=== PATIENT | male | born 1995 | race Caucasian/White ===

== ENCOUNTER 2021-09-11 08:58 | Emergency (ER) | payer OTHER, SELFPAY ==
--- NOTE | ~2021-09-11 | XR_ITS ---
EXAMINATION: XR FINGER, RIGHT CLINICAL INFORMATION: Laceration, trauma COMPARISON: None TECHNIQUE: AP view right hand and 2 views right index finger are obtained for 3 views. FINDINGS: There is comminuted fracture distal phalangeal tuft index finger distal phalanx. No significant angulation or displacement. No dislocation or destructive process. There is known soft tissue laceration in this area. No visible radiopaque soft tissue foreign body. XR/XR finger RT min 2V IMPRESSION: Comminuted fracture index finger distal phalangeal tuft.
[2021-09-11 09:10] VITALS: BP 127/67; PULSE 70; RESP 18; TEMP 36.2; O2SAT 96; BMI 28.5
--- NOTE | 2021-09-11 10:04 | ED_ITS ---
HPI - Wound/Laceration General Chief Complaint: Wound/Laceration <CODEY Garcia - Last Filed: 09/11/21 11:52> Stated Complaint: rt pointer finger lac <CODEY Garcia - Last Filed: 09/11/21 11:52> Time Seen by Provider: 09/11/21 10:03 <CODEY Garcia - Last Filed: 09/11/21 11:52> Source: patient <CODEY Garcia Last Filed: 09/11/21 11:52> Mode of arrival: ambulatory <CODEY Garcia - Last Filed: 09/11/21 11:52> History of Present Illness HPI narrative: 25-year-old male presenting to the ED complaining of crush wound to right index finger s/p spring from garage door letting go and catching finger [employer]. Reports also caught middle finger. Denies injury to other location. Admits to associated numbness. Tetanus unknown. Denies taking anticoagulation, fever, chills <CODEY Garcia Last Filed: 09/11/21 11:52> Onset (ago): hour(s) <CODEY Garcia - Last Filed: 09/11/21 11:52> Related Data Home Medications: Previous Rx's Medication Instructions Recorded acetaminophen 325 mg tablet 325 mg PO Q4-6H PRN #20 tab 09/11/21 (Tylenol) cephalexin 500 mg capsule 500 mg PO QID 7 Days #28 cap 09/11/21 hydrocodone 5 mg-acetaminophen 325 1 tab PO Q8H PRN 3 Days #9 tab 09/11/21 mg tablet ibuprofen 800 mg tablet 800 mg PO Q8H PRN #20 tab 09/11/21 <CODEY Garcia - Last Filed: 09/11/21 11:52> Allergies/Adverse Reactions: Allergies Allergy/AdvReac Type Severity Reaction Status Date / Time No Known Allergies Allergy Verified 09/11/21 09:08 [No Known Allergies*] <CODEY Garcia Last Filed: 09/11/21 11:52> Review of Systems Review of Systems: Constitutional: No Fever, No Chills ENT/Mouth: No Ear Pain, No Nasal Congestion, No sore throat Cardiovascular: No Chest Pain, No SOB Respiratory: No Cough, No Sputum, No Wheezing Gastrointestinal: No Nausea, No Vomiting, No Abdominal pain Genitourinary:, No Dysuria, No Urgency, No Flank Pain Musculoskeletal: + joint pain, No Myalgias, + Joint Swelling Skin: No Skin Lesions, No rash Neuro: No Weakness, N+ Numbness, + Paresthesias <CODEY Garcia - Last Filed: 09/11/21 11:52> Yes all other systems are reviewed and are negative <CODEY Garcia - Last Filed: 09/11/21 11:52> [facility] Past Medical History Attestation statement: The following information was validated with the patient. <CODEY Garcia - Last Filed: 09/11/21 11:52> Medical History: Medical History (Updated 09/11/21 @ 11:45 by CODEY Garcia) Asthma <CODEY Garcia - Last Filed: 09/11/21 11:52> Social History Social History: Social History Advance Directives: No <CODEY Garcia - Last Filed: 09/11/21 11:52> Physical Exam Vital Signs: Vital Signs: Last Vital Signs Temp 97.1 F 09/11/21 09:10 Pulse 70 09/11/21 09:10 Resp 18 09/11/21 09:10 BP 127/67 09/11/21 09:10 Pulse Ox 96 09/11/21 09:10 Body Mass Index 28.5 <CODEY Garcia - Last Filed: 09/11/21 11:52> Vital Signs: Last Vital Signs Temp 97.1 F 09/11/21 09:10 Pulse 70 09/11/21 09:10 Resp 18 09/11/21 09:10 BP 127/67 09/11/21 09:10 Pulse Ox 96 09/11/21 09:10 Body Mass Index 28.5 <Krish Bacon MD - Last Filed: 09/11/21 10:05> Const: General: cooperative, healthy appearing and no acute distress <CODEY Garcia - Last Filed: 09/11/21 11:52> Orientation/consciousness: patient oriented x3 <CODEY Garcia Last F iled: 09/11/21 11:52> Limitations: no limitations <CODEY Garcia - Last Filed: 09/11/21 11:52> HENMT: Head: Yes normal to inspection and Yes atraumatic <Stacy Chew AR - Last Filed: 09/11/21 11:52> Ears: hearing grossly normal bilaterally <Stacy Chew AR - Last Filed: 09/11/21 11:52> General nose exam: Normal external nose present <Stacy Chew AR - Last Filed: 09/11/21 11:52> Face and sinus: Yes normal facial exam <Stacy Chew AR - Last Filed: 09/11/21 11:52> Eyes: General: appearance normal, both eyes and all related structures <Stacy Chew AR - Last Filed: 09/11/21 11:52> EOM: EOMs intact bilaterally <Stacy Chew AR - Last Filed: 09/11/21 11:52> Neck: Neck: Yes normal visual inspection and Yes no lymphadenopathy <Stacy Chew AR - Last Filed: 09/11/21 11:52> Resp: Effort & Inspection: normal respiratory effort <Stacy Chew AR - Last Filed: 09/11/21 11:52> Auscultation: clear to auscultation bilaterally <Stacy Chew AR - Last Filed: 09/11/21 11:52> Cardio: Rate: regular rate <Stacy Chew AR - Last Filed: 09/11/21 11:52> Heart sounds: S1 normal heart sound present and S2 normal heart sound present <Stacy Chew AR - Last Filed: 09/11/21 11:52> Peripheral pulses: radial pulses present <Stacy Chew AR - Last Filed: 09/11/21 11:52> Skin: Rashes: no rashes <Stacy Chew AR - Last Filed: 09/11/21 11:52> Neuro: Other: Sensation intact to light touch <Stacy Chew AR - Last Filed: 09/11/21 11:52> General: patient oriented x3 and tone normal <Stacy Chew AR - Last Filed: 09/11/21 11:52> Gait exam (Neuro): Normal gait present <Stacy Chew AR - Last Filed: 09/11/21 11:52> Extrem: Other: Please refer to images above. Laceration through eponychium with visible nail popping through. Ecchymosis and tenderness to palpation. Sensation intact to light touch. Decreased ROM secondary to pain <CODEY Garcia - Last Filed: 09/11/21 11:52> Course Course Course Narrative: XR finger RT min 2V IMPRESSION: Comminuted fracture index finger distal phalangeal tuft. >> patient placed in finger splint -7 sutures placed to tack down the nail to finger, worrisome signs and symptoms and strict return precautions discussed with patient. Given 1st dose of Keflex and Tdap in the ED. Is to follow up with Hand surgery. He verbalized understanding feel safe for discharge home at this time <CODEY Garcia - Last Filed: 09/11/21 11:52> Reevaluation(s) Reevaluation #1: distal tuft fracture with laceration through the epinychium. Will place some retention sutures through the nail and nailbed to hold finger in place <Krish Bacon MD - Last Filed: 09/11/21 10:05> Time: 10:05 <Krish Bacon MD - Last Filed: 09/11/21 10:05> MDM - Wound/Laceration MDM Narrative Medical decision making narrative: 25-year-old male presenting to the ED complaining of crush wound to right index finger s/p spring from garage door letting go and catching finger [employer]. On exam vital signs stable, NAD, physical exam as above, concern for fracture/open fracture and laceration. Tetanus updated Will repair wound/use retention sutures to tack down the nail to finger and have patient follow-up with orthopedic hand specialist <CODEY Garcia - Last Filed: 09/11/21 11:52> Medical Records Attestation: I reviewed the patient's medical records. <CODEY Garcia - Last Filed: 09/11/21 11:52> Lab Data Attestation: I reviewed the patient's lab results. <CODEY Garcia - Last Filed: 09/11/21 11:52> Procedures Laceration Laceration 1: Site: hand <CODEY Garcia - Last Filed: 09/11/21 11:52> Side (If applicable): right <CODEY Garcia - Last Filed: 09/11/21 11:52> Size (cm): 2 <Stacy Naina [facility] Last Filed: 09/11/21 11:52> Description: linear and irregular <Stacy Chew [facility] Last Filed: 09/11/21 11:52> Local Anesthetic: lidocaine 1% <Stacy Chew [facility] Last Filed: 09/11/21 11:52> Amount of anesthesia used (mL): 4 <Stacy Chew AR - Last Filed: 09/11/21 11:52> Pre-repair: wound explored and irrigated extensively <Stacy Chew [facility] Last Filed: 09/11/21 11:52> Skin layer closed with: nylon <Stacy Chew AR - Last Filed: 09/11/21 11:52> Size (cm): 4-0 <Stacy Chew [facility] Last Filed: 09/11/21 11:52> Number of sutures: 7 <Stacy Chew [facility] Last Filed: 09/11/21 11:52> Discharge Plan Discharge Clinical Impression: Laceration Fracture of distal phalanx of finger, open Qualifiers: Encounter type: initial encounter Finger: index finger Fracture alignment: nondisplaced Laterality: right Qualified Code(s): S62.660B - Nondisplaced fracture of distal phalanx of right index finger, initial encounter for open fracture <CODEY Garcia Last Filed: 09/11/21 11:52> Patient Disposition: Home, Self-Care <CODEY Garcia - Last Filed: 09/11/21 11:52> Instructions: Finger Fracture (ED) <Stacy Chew [facility] Last Filed: 09/11/21 11:52> Additional Instructions: Your broke the tip of her finger. Your laceration was also repaired with sutures today, due to the location of her injury you are at risk of losing your nail Keflex as an antibiotic, please take as prescribed You need to keep finger splint on, dry, and clean into you see the testing specialist If area begins to look infected, is red, there is drainage of fevers or chills please return to the ED The sutures should be removed in 7-10 days [place] is an opiate pain medication, take when pain is severe for the next 3 days. Be aware Jordana has Tylenol mixed in. Do not exceed 4 g of Tylenol in 1 day In addition take ibuprofen at home which will help with pain and swelling <CODEY Garcia - Last Filed: 09/11/21 11:52> Prescriptions: New hydrocodone-acetaminophen 5-325 mg tablet 1 tab PO Q8H PRN (Reason: pain, severe) 3 Days Qty: 9 RF: 0 cephalexin 500 mg capsule 500 mg PO QID 7 Days Qty: 28 RF: 0 ibuprofen 800 mg tablet 800 mg PO Q8H PRN (Reason: pain) Qty: 20 RF: 0 acetaminophen [Tylenol] 325 mg tablet 325 mg PO Q4-6H PRN (Reason: fever) Qty: 20 RF: 0 <CODEY Garcia - Last Filed: 09/11/21 11:52> Referrals: Yamile Lilly MD [Physician] - 3 days Krish Bacon MD [Emergency Provider] - 1 week (Return to any emergency department or urgent care in 7-10 days to have your stitches taken out) <CODEY Garcia - Last Filed: 09/11/21 11:52> Stand Alone Forms: Work/School Release <CODEY Garcia - Last Filed: 09/11/21 11:52>
[2021-09-11] MEDS: cephALEXin 500 MG CAPSULE PO (10:30)
[2021-09-11] MEDS: Diphth,Pertus(ACell),Tet Adult 0.5 ML SYRINGE IM (10:30)
[2021-09-11] MEDS: Lidocaine HCl 1 % MPF 5 ML VIAL SUBCUT (10:30)
== END 2021-09-11 12:02 | disposition home or self-care (01) ==
PROVIDERS: Emergency Provider Emergency Medicine; PCP Pediatrics
DX: S62.660B Nondisplaced fracture of distal phalanx of right index finger, initial encounter for open fracture (principal); X58.XXXA Exposure to other specified factors, initial encounter; Y93.9 Activity, unspecified; Y92.9 Unspecified place or not applicable; Y99.9 Unspecified external cause status
CPT/HCPCS: 12001; 73140; 90471; 90715; 99283; 99284

== ENCOUNTER → 2021-09-13 10:31 | Outpatient (BNVA) | payer OTHER, SELFPAY | PROVIDERS: PCP Pediatrics; Visit Provider Orthopaedic Surgery | DX: S62.630B Displaced fracture of distal phalanx of right index finger, initial encounter for open fracture (principal); W24.0XXA Contact with lifting devices, not elsewhere classified, initial encounter; Y93.H3 Activity, building and construction; Y92.69 Other specified industrial and construction area as the place of occurrence of the external cause; Y99.0 Civilian activity done for income or pay; J45.909 Unspecified asthma, uncomplicated | CPT/HCPCS: 99202 ==

== ENCOUNTER → 2021-09-27 12:34 | Outpatient (BNVA) | payer OTHER, SELFPAY | PROVIDERS: PCP Pediatrics; Visit Provider Orthopaedic Surgery | DX: S69.91XD Unspecified injury of right wrist, hand and finger(s), subsequent encounter (principal); S62.630D Displaced fracture of distal phalanx of right index finger, subsequent encounter for fracture with routine healing | CPT/HCPCS: 99212 ==

== ENCOUNTER 2021-11-18 04:43 | Emergency (ER) | payer OTHER, SELFPAY ==
[2021-11-18 04:46] VITALS: BP 145/71; PULSE 81; RESP 16; TEMP 36.5; O2SAT 99; BMI 27.8
--- NOTE | 2021-11-18 05:04 | PC.NURSE ---
pt has no retractions or respiratory distress. pt able to speak in full sentence. pt able to ambulate with no distress. Will continue to monitor.
[2021-11-18 05:13] LABS: COVID-19 Test Positive (Negative)
--- NOTE | 2021-11-18 06:33 | ED.ASTHMA ---
HPI - Asthma General Chief Complaint: Asthma Stated Complaint: Chest tightness/SoB, Asthma Time Seen by Provider: 11/18/21 06:33 Source: patient Mode of arrival: ambulatory History of Present Illness HPI Narrative: 26-year-old male with history of asthma, is unvaccinated for COVID-19, presents with positive COVID-19 exposure from his son with complaints of feeling short of breath and chest tightness since yesterday afternoon. Patient also reports dry cough but denies fever and endorses he has experienced chills. Related Data Previous Rx's Medication Instructions Recorded acetaminophen 325 mg tablet 325 mg PO Q4-6H PRN #20 tab 09/11/21 (Tylenol) cephalexin 500 mg capsule 500 mg PO QID 7 Days #28 cap 09/11/21 hydrocodone 5 mg-acetaminophen 325 1 tab PO Q8H PRN 3 Days #9 tab 09/11/21 mg tablet ibuprofen 800 mg tablet 800 mg PO Q8H PRN #20 tab 09/11/21 Allergies Allergy/AdvReac Type Severity Reaction Status Date / Time No Known Allergies Allergy Verified 09/27/21 12:37 [No Known Allergies*] Review of Systems Review of Systems: Pertinent positives and negatives as stated in HPI 10 point review of systems is otherwise negative. PMFSH Past Medical History Source: nursing notes reviewed Medical History Asthma Social History Social History Advance Directives: No Advance Directives Information Provided: Yes Physical Exam Vital Signs: Vital Signs: Last Vital Signs Temp 97.7 F 11/18/21 04:46 Pulse 81 11/18/21 04:46 Resp 16 11/18/21 04:46 BP 145/71 H 11/18/21 04:46 Pulse Ox 99 11/18/21 04:46 BMI result Body Mass Index 27.8 VITAL SIGNS: Reviewed. GENERAL: Well developed, well nourished, in no acute distress. HEAD: Normocephalic/atraumatic EYES: PERRLA, EOMI OROPHARYNX: no oral lesions noted, posterior pharynx clear NECK: Supple, no adenopathy LUNGS: Normal breath sounds, no tachypnea, no wheeze/rales/rhonchi. SpO2<99> CARDIOVASCULAR: Regular rate and rhythm without noted murmurs ABDOMEN: Soft, non-tender, non-distended with bowel sounds. MUSCULOSKELETAL: No tenderness, deformities, or effusions noted on gross inspection. EXTREMITIES: No cyanosis, clubbing or edema. SKIN: Inspection of the skin reveals no rashes NEUROLOGIC: Alert and oriented x 4. Course Course Course Narrative: 26-year-old male with history and clinical presentation consistent with viral syndrome and on review of investigations is noted be COVID-19 positive. There is no evidence to suggest asthma exacerbation and patient has albuterol inhalers at home. He is not tachypneic nor tachycardic, he is afebrile and oxygenating well on room air. He is discharged home with strict instructions to isolate. MDM - Asthma Lab Data Labs: Lab Results 11/18/21 Range/Units 05:01 COVID-19 ([facility]) Positive A (Negative) COVID-19 Clin Com See Note Discharge Plan Discharge Clinical Impression: Viral syndrome, Lab test positive for detection of COVID-19 virus Patient Disposition: Home, Self-Care Instructions: Viral Syndrome (ED), COVID-19 (Coronavirus Disease 2019) (ED) Additional Instructions: You have been diagnosed with COVID-19 and must isolate for the next 14 days and follow all state/Federal guidelines. Recommend [id number] Tylenol/ibuprofen as needed for headache, body aches, temperatures greater than 100.4. Recommend [id number] cool mist humidifier for use of breathing while you sleep at night. Also, recommend [id number], medication for any cough you may be experiencing. Return to the ER for any worsening symptoms. Prescriptions: No Action hydrocodone-acetaminophen 5-325 mg tablet 1 tab PO Q8H PRN (Reason: pain, severe) 3 Days Qty: 9 RF: 0 cephalexin 500 mg capsule 500 mg PO QID 7 Days Qty: 28 RF: 0 ibuprofen 800 mg tablet 800 mg PO Q8H PRN (Reason: pain) Qty: 20 RF: 0 acetaminophen [Tylenol] 325 mg tablet 325 mg PO Q4-6H PRN (Reason: fever) Qty: 20 RF: 0
== END 2021-11-18 07:20 | disposition home or self-care (01) ==
PROVIDERS: Emergency Provider Student in an Organized Health Care Education/Training Program
DX: U07.1 COVID-19 (principal); B34.9 Viral infection, unspecified; J45.909 Unspecified asthma, uncomplicated
CPT/HCPCS: 87635; 99282; 99283